=== PATIENT | male | born 1970 | race American Indian/Alaskan Native ===

== ENCOUNTER 2021-08-03 12:54 | Outpatient (CLI) | payer MEDICAID, SELFPAY ==
--- NOTE | 2021-08-03 13:02 | XR_ITS ---
WS: [email or web address] Exam: XR hand RT min 3V* [id number] Date/Time of Exam: 08/03/2021 1:02 PM Reason For Exam: RIGHT HAND PAIN No fracture or dislocation. Moderate degenerative changes in the IP joints most severe in the DIP roseann nts. No soft tissue foreign bodies. XR/XR hand RT min 3V* [id number] IMPRESSION: 1. No fracture or dislocation. 2. Moderately advanced degenerative changes in the IP joints.
--- NOTE | 2021-08-03 13:26 | XR_ITS ---
WS: [email or web address] Exam: XR hand LT min 3V* [id number] Date/Time of Exam: 08/03/2021 1:30 PM Reason For Exam: LEFT HAND PAIN No acute fracture or dislocation. Degenerative changes in the IP joints. Old fracture deformity of th e distal fifth metacarpal. No soft tissue foreign bodies. XR/XR hand LT min 3V* [id number] IMPRESSION: 1. Degenerative changes. No fracture or dislocation. 2. Old fracture deformity distal fifth metacarpal.
== END 2021-08-03 12:55 | disposition home or self-care (01) ==
PROVIDERS: Visit Provider Nurse Practitioner
DX: M79.642 Pain in left hand (principal); M79.641 Pain in right hand
CPT/HCPCS: 73130

== ENCOUNTER → 2021-10-16 10:50 | Outpatient (BNVA) | payer MEDICAID, SELFPAY | PROVIDERS: Referring Provider Nurse Practitioner; Visit Provider Physician Assistant | DX: S62.395D Other fracture of fourth metacarpal bone, left hand, subsequent encounter for fracture with routine healing (principal); X58.XXXD Exposure to other specified factors, subsequent encounter; Z87.81 Personal history of (healed) traumatic fracture | CPT/HCPCS: 73130 ==

== ENCOUNTER 2021-10-16 14:19 | Outpatient (CLI) | payer MEDICAID, SELFPAY | END 2021-10-16 14:20 | disposition home or self-care (01) | LOC: SPT 14:22 | PROVIDERS: Visit Provider Physician Assistant | DX: Z46.89 Encounter for fitting and adjustment of other specified devices (principal); S62.337D Displaced fracture of neck of fifth metacarpal bone, left hand, subsequent encounter for fracture with routine healing; X58.XXXD Exposure to other specified factors, subsequent encounter | CPT/HCPCS: 97760; L3984 ==

== ENCOUNTER → 2021-11-01 15:26 | Outpatient (BNVA) | payer MEDICAID, SELFPAY | PROVIDERS: Visit Provider Physician Assistant | DX: S62.335D Displaced fracture of neck of fourth metacarpal bone, left hand, subsequent encounter for fracture with routine healing (principal); S62.337D Displaced fracture of neck of fifth metacarpal bone, left hand, subsequent encounter for fracture with routine healing; X58.XXXD Exposure to other specified factors, subsequent encounter | CPT/HCPCS: 73120 ==

== ENCOUNTER → 2022-11-21 13:52 | Outpatient (BNVA) | payer MEDICAID, SELFPAY | PROVIDERS: Visit Provider Physician Assistant | DX: M79.601 Pain in right arm (principal); S22.000A Wedge compression fracture of unspecified thoracic vertebra, initial encounter for closed fracture; X58.XXXA Exposure to other specified factors, initial encounter; M40.204 Unspecified kyphosis, thoracic region; M51.37 Other intervertebral disc degeneration, lumbosacral region; R20.2 Paresthesia of skin; M79.602 Pain in left arm; M48.02 Spinal stenosis, cervical region; R26.0 Ataxic gait | CPT/HCPCS: 72050; 72070; 72100; 99205 ==

== ENCOUNTER 2022-12-19 11:00 | Outpatient (CLI) | payer MEDICAID, SELFPAY ==
--- NOTE | 2022-12-19 11:00 | MR_ITS ---
WS: [email or web address] MRI CERVICAL SPINE NONCONTRAST TECHNIQUE: Sagittal T1, T2 and STIR imaging. Axial T2, gradient, and fiesta imaging. CLINICAL INFORMATION: pain COMPARISON: MRI cervical 6 13,018 FINDINGS: Mild straightening of the normal cervical lordosis in the upper cervical spine. Disc space narrowing worse at C5-C6 with endplate degenerative changes. This is progressed compared to 2018. Mild disc ost eophyte complexes worse at C4-C5 C5-C6 and C6-C7. C2-C3: Mild disc osteophyte complex with endplate ridging. Mild facet arthropathy. Mild LEFT and no R IGHT foraminal narrowing. Spinal canal is patent. C3-C4: Mild disc osteophytic ridging. Mild bilateral bony foraminal narrowing. Mild facet arthropathy . Spinal canal is patent. C4-C5: Disc osteophyte complex with endplate ridging. Moderate bilateral bony foraminal narrowing. Mi ld facet arthropathy. C5-C6: Disc osteophyte complex with endplate ridging. Mild to moderate central canal stenosis slightl y progressed compared to 2018. Moderate bilateral bony foraminal narrowing. Moderate facet arthropath y. C6-C7: Disc osteophyte complex with endplate ridging. Mild central canal stenosis. Moderate bilateral bony foraminal narrowing with moderate facet arthropathy. C7-T1: No significant disc bulging. Spinal canal and foramen are patent. Visualized brain stem structures: Normal. Prevertebral soft tissues: Normal. MR/MR cervical spin wo con* [id number] IMPRESSION: 1. Disc space narrowing at C5-C6 progressed compared to 2018. 2. Mild to moderate central canal stenosis C5-C6 appears slightly progressed. Stable mild central canal stenosis C4-C5 and C6-C7. 3. Moderate bilateral bony foraminal narrowing worse at C5-C6 and C6-C7. Lennie inal narrowing progressed compared to previous
--- NOTE | 2022-12-19 13:00 | MR_ITS ---
WS: [email or web address] MRI THORACIC SPINE WITHOUT CONTRAST TECHNIQUE: Sagittal T1, T2 and STIR imaging. Axial T2 imaging. Noncontrast imaging obtained. CLINICAL INFORMATION: pain COMPARISON: MRI 2009 FINDINGS: Thoracolumbar scoliosis. Moderate thoracic kyphosis. Chronic appearing anterior wedging with chronic compression at T6-T8. Anterior wedging has progressed at T6 and T8 compared to 2009. No endplate kenzie a. No retropulsion. Loss of approximately 60% vertebral body height T6 and vertebral plana configurat ion anteriorly at T8. Mild bilateral bony foraminal narrowing T8-T9, T9-T10 and T10-T11. Normal paravertebral soft tissues A few endplate Schmorl's nodes. No high-grade central canal stenosis. Cord signal is normal. Moderate facet arthropathy lower thoracic spine. Normal caliber thoracic aorta. Adrenal glands are normal MR/MR thoracic spin wo con* [id number] IMPRESSION: 1. Moderate thoracic kyphosis with anterior wedging and chronic compression at T6-T8 worse at T6 and T8. This is progressed compared to 2009. 2. No significant endplate edema. No retropulsion. Loss of approximately 60% v ertebral body height T6 with vertebral plana configuration at T8 anteriorly. 3. Moderate facet arthropathy lower thoracic spine. 4. Cord signal is normal. 5. Endplate Schmorl's nodes in the mid thoracic spine. 6. No other acute findings.
--- NOTE | 2022-12-19 13:45 | MR_ITS ---
WS: [email or web address] MRI LUMBAR SPINE NONCONTRAST TECHNIQUE: Sagittal T1, T2 and STIR imaging. Axial T1 and T2 imaging. CLINICAL INFORMATION: pain COMPARISON: MRI 3 16,012 FINDINGS: Mild lumbar curve. No acute compression. Disc bulging worse L5-S1. Moderate kyphosis with chronic ant erior wedging in the mid thoracic spine. Anterior wedging at T6, T7 and T8. L1-L2: Mild facet arthropathy. Spinal canal and foramen are patent. L2-L3: No significant disc bulging. Mild facet arthropathy. Spinal canal and foramen are patent. L3-L4: Mild annular bulging. Mild narrowing of the RIGHT greater than LEFT subarticular recess. Mild RIGHT foraminal narrowing. LEFT foramen is patent. Mild facet arthropathy. L4-L5: Mild annular bulging. Slight narrowing of the subarticular recess bilaterally, RIGHT greater t andrews LEFT. Small RIGHT foraminal protrusion with mild RIGHT foraminal narrowing. LEFT foramen is paten t. Mild facet arthropathy. L5-S1: Mild annular bulging with slight impingement on the traversing RIGHT S1 nerve root in the suba rticular recess. LEFT eccentric disc bulging impinges the exiting LEFT L5 nerve root laterally. Mild RIGHT foraminal narrowing. Mild facet arthropathy. Mild degenerative endplate edema L5-S1. Small LEFT renal cyst. MR/MR lumbar spine wo con* [id number] IMPRESSION: 1. Mild lumbar curve. No acute compression. No high-grade central canal stenos is. 2. Progressed disc bulging L5-S1 with slight impingement traversing RIGHT S1 n erve root in the subarticular recess. Recommend correlation for RIGHT S1 nerve root symptoms. 3. LEFT foraminal protrusion L5-S1 slightly impinges the exiting LEFT L5 nerve root. This appears progressed compared to previous. 4. Small RIGHT foraminal protrusion L3-L4 slightly contacts the exiting RIGHT L3 nerve root with mild RIGHT foraminal narrowing. This appears progressed comp ared to previous. 5. Annular bulging L4-L5 with slight impingement on the RIGHT subarticular rec ess. Mild RIGHT L4-L5 foraminal narrowing. These findings appear progressed sin ce 2011. 6. Mild facet arthropathy L3-L5.
== END 2022-12-19 11:01 | disposition home or self-care (01) ==
LOC: RAD 11:03
PROVIDERS: Visit Provider Physician Assistant
DX: M51.37 Other intervertebral disc degeneration, lumbosacral region (principal); M48.061 Spinal stenosis, lumbar region without neurogenic claudication
CPT/HCPCS: 72141; 72146; 72148

== ENCOUNTER 2023-01-09 15:39 | Outpatient (CLI) | payer MEDICAID, SELFPAY | END 2023-01-09 15:40 | disposition home or self-care (01) | LOC: SPT 15:40 | PROVIDERS: Visit Provider Physician Assistant | DX: Z46.89 Encounter for fitting and adjustment of other specified devices (principal); M54.9 Dorsalgia, unspecified | CPT/HCPCS: 97760; 99214; L0456 ==

== ENCOUNTER → 2023-03-18 14:34 | Outpatient (BNVA) | payer MEDICAID, SELFPAY | PROVIDERS: Visit Provider Orthopaedic Surgery | DX: M54.9 Dorsalgia, unspecified (principal) | CPT/HCPCS: 99214 ==

== ENCOUNTER → 2023-06-24 13:08 | Outpatient (BNVA) | payer MEDICAID, SELFPAY | PROVIDERS: Visit Provider Orthopaedic Surgery | DX: M48.061 Spinal stenosis, lumbar region without neurogenic claudication (principal) | CPT/HCPCS: 99214 ==

== ENCOUNTER → 2024-03-02 16:00 | Outpatient (BNVA) | payer MEDICAID, SELFPAY | PROVIDERS: Visit Provider Orthopaedic Surgery | DX: M54.9 Dorsalgia, unspecified (principal); M48.061 Spinal stenosis, lumbar region without neurogenic claudication | CPT/HCPCS: 72110; 99214 ==

== ENCOUNTER 2024-04-01 15:45 | Outpatient (CLI) | payer MEDICAID, SELFPAY ==
--- NOTE | 2024-04-01 16:00 | MR_ITS ---
WS: [email or web address] MRI LUMBAR SPINE NONCONTRAST HISTORY: back pain COMPARISON: 12/19/2022 TECHNIQUE: Sagittal and axial multisequence imaging is submitted. Very slight increase in the lumbar lordosis. Posterior alignment is normal. Mild disc space narrowing and desiccation. Small amount of reactive marrow edema in the LEFT L5 and S1 vertebral endplates. Conus terminates normally at L1-2 disc level. L1-L2: Bilateral facet joint arthropathy and mild foraminal narrowing. L2-L3: Mild facet arthritis without significant stenosis. L3-L4: Mild bilateral facet joint arthritis without significant stenosis. L4-L5: Mild annular disc bulging with mild facet arthritis. Mild foraminal narrowing. L5-S1: Mild annular disc bulging and osteophytic ridging. There is slight disc contact on the hay ing RIGHT S1 nerve root. Asymmetric disc bulging extends to the LEFT and contacts the LEFT L5 exiting nerve root. Slightly more contact on the nerve root as compared to the prior study. Mild bilateral f oraminal stenosis, LEFT greater than RIGHT. Mild subarticular recess encroachment. MR/MR lumbar spine wo con* [id number] IMPRESSION: 1. Previously described disc bulging contacting the RIGHT traversing S1 nerve root is unchanged. 2. Additional LEFT foraminal disc bulging contacts the exiting LEFT L5 nerve r oot. Slightly more progressed as compared to 12/19/2012. 3. Mild bilateral foraminal narrowing at L1-2 and L4-5. 4. Mild bilateral foraminal narrowing at L5-S1, LEFT greater than RIGHT and mi ld subarticular recess encroachment. 5. Facet joint arthropathy is mild throughout the lumbar spine.
--- NOTE | 2024-04-01 16:45 | MR_ITS ---
WS: [email or web address] MRI THORACIC SPINE noncontrast HISTORY: back pain COMPARISON: 12/19/2022 TECHNIQUE: Multiplanar sequences are performed in sagittal and axial planes. Thoracolumbar scoliosis. There is moderate thoracic kyphosis which is similar to the prior study. Chr onic anterior wedging with chronic compressions of T6, T7 and mildly of T9. Most significant fracture at T8. There are a few Schmorl's nodes scattered throughout the lumbar spine. No acute marrow edema or fracture. Facet joints appear normally aligned. Signal within the cord is normal although the cord is being displaced posteriorly by the kyphosis. No cord compression or atrophy. Mild bilateral facet joint arthritis beginning at T4-5. Small LEFT para central disc protrusion at T4-5. Central disc protrusion at T5-6. Mild to moderate foraminal stenosis from T6-7 through T11-12. No high-grade central stenosis. Paravertebral soft tissues are negative. Normal sized thoracic aorta. The adrenal glands are negative . MR/MR thoracic spin wo con* [id number] IMPRESSION: 1. Moderate increase in thoracic kyphosis is similar to the prior study. 2. Vertebral body compression fractures from T6-T9 are stable. Most significan t at T8. T8 vertebral plana fracture. No new compression fracture or edema. 3. Mild to moderate facet joint arthritis from T6-7 through T11-12.
== END 2024-04-01 15:46 | disposition home or self-care (01) ==
LOC: RAD 15:46
PROVIDERS: Visit Provider Orthopaedic Surgery
DX: M51.24 Other intervertebral disc displacement, thoracic region (principal); M40.204 Unspecified kyphosis, thoracic region; S22.050A Wedge compression fracture of T5-T6 vertebra, initial encounter for closed fracture; S22.060A Wedge compression fracture of T7-T8 vertebra, initial encounter for closed fracture; M51.46 Schmorl's nodes, lumbar region; M99.62 Osseous and subluxation stenosis of intervertebral foramina of thoracic region
CPT/HCPCS: 72146; 72148

== ENCOUNTER → 2024-05-04 13:00 | Outpatient (BNVA) | payer MEDICAID, SELFPAY | PROVIDERS: Visit Provider Orthopaedic Surgery | DX: M54.6 Pain in thoracic spine (principal); G89.29 Other chronic pain | CPT/HCPCS: 99214 ==